=== PATIENT | male | born 1970 | race Hispanic/Latino ===

== ENCOUNTER 2021-06-18 07:14 | Emergency (ER) | payer SELFPAY ==
--- OUTSIDE RECORDS SUMMARY | 2021-06-18 07:18 | XMS REPORT | Continuity of Care Document ---
:1970 Author Organization [facility] t Address [address] [place] [address] Care Team Providers Name Role Phone Lab, Fam Pob I Attending Clinician Unavailable Ebrasheryl FERMENTATION MANAGER Attending Clinician EBRAHIM Attending Clinician Unavailable Doctor Unassigned, Name Attending Clinician Unavailable Problems This patient has no known problems. Allergies, Adverse Reactions, Alerts Allergy Allergy Status Severity Reaction(s) Onset Inactive Treating Comm ents Source Name Type Date Date Clinician NO KNOWN Drug [facility] Social History Social Habit Start Date Stop Date Quantity Comments Source Exposure to Yes [facility] SARS-CoV-2 (event) Medica l Branch Sex Assigned At [birth year] [facility] 00:00:00 00:00:00 [facility] Smoking Status Start Date Stop Date Source Unknown if ever smoked [facility] Medications This patient has no known medications. Procedures Procedure Date / Time Performed Performing Clinician Sour e ASSIGNMENT OF BENEFITS 2021-03-11 15:17:55 Doctor Unassigned, No [facility] Encounters Start End Encounter Admission Attending Care Care Encounter Source Date/Time Date/Time Type Type Clinicians Facility Department ID 2021-03-11 2021-03-11 Outpatient R [facility] [id number] Univers 11:40:00 11:40:00 [id number] [facility] 2021-03-11 2021-03-11 Laboratory Lab, Adc Fam Pob I [facility] 1.2. [id number] Univers 10:19:41 10:39:41 Only Dashawn Viralitikristina [facility] [id number] [facility] [id number] Ghanshyam as Professio [phone] Hi dical nal [address] 2021-03-11 2021-03-11 Outpatient R DASHAWN [facility] [id number] Univers 10:00:00 10:00:00 SAILAJA barriga of [facility] 2021-03-11 2021-03-11 Orders Doctor JORGE [id number] Univers 00:00:00 00:00:00 Only Unassigned, LAURO [id number] ity of [place] [facility] [id number] Ghanshyam as [phone] [facility] 009 Branch Results This patient has no known results.
[2021-06-18] MEDS ORDERED: KETOROLAC 30 MG/ML INJ ONE (07:40)
--- NOTE | 2021-06-18 08:01 | RAD REPORT ---
EXAM DESCRIPTION: CT - Thorax Wo Con - 06/18/2021 7:40 am CLINICAL HISTORY: PAIN COMPARISON: No comparisons FINDINGS: Chest Wall: No suspicious thyroid nodules or pathologic lymphadenopathy. Lungs: No acute abnormality. Pleura: No significant effusions or pneumothorax. Mediastinum/ofe: No pathologic lymphadenopathy. Pulmonary arteries/Aorta: Limited evaluation without contrast. No aortic aneurysm. Heart: No significant pericardial effusion. Normal heart size. Upper abdomen: There are couple of punctate renal calculi on the right kidney. Nonspecific "leanne" me sentery that is partially imaged, frequently an incidental finding. Bones: No acute abnormality. All CT scans are performed using dose optimization technique as appropriate and may include automated exposure control or mA/KV adjustment according to patient size. IMPRESSION: No acute findings within the chest. A few incidental findings as noted above.
--- NOTE | 2021-06-18 08:24 | EDPHYS ---
Physician Documentation [facility] Name: Isaias Diaz Age: 51 yrs Sex: Male : 1970 Arrival Date: 06/18/2021 Time: 07:15 Bed 17 Private MD: ED Physician Ronn Abebe HPI: 06/18 08:13 This 51 yrs old Male presents to ER via Ambulatory with complaints of Back kb Pain. 08:13 The patient presents with pain that is acute. The symptoms are located in the right kb subscapular area. Onset: The symptoms/episode began/occurred yesterday, and became worse today. The pain does not radiate. Associated signs and symptoms: The patient has no apparent associated signs or symptoms. The problem was sustained strenuous activity over the last several days. Modifying factors: The patient symptoms are alleviated by nothing, the patient symptoms are aggravated by movement. Severity of symptoms: At their worst the symptoms were moderate, in the emergency department the symptoms are unchanged. The patient has not experienced similar symptoms in the past. The patient has not recently seen a physician. Historical: - Allergies: 07:24 No Known Allergies; ss - Home Meds: 07:24 None [Active]; ss - PMHx: 07:24 borderline diabetes; ss - PSHx: 07:24 None; ss - Immunization history:: Client reports having NOT received the Covid vaccine. - Social history:: Smoking status: Patient reports the use of cigarette tobacco products, cigars. ROS: 08:12 Constitutional: Negative for fever, chills, and weight loss. kb 08:12 Back: Positive for pain at rest, pain with movement, of the right subscapular area. 08:12 All other systems are negative. Exam: 08:12 Constitutional: This is a well developed, well nourished patient who is awake, alert, kb and in no acute distress. Head/Face: Normocephalic, atraumatic. ENT: Moist Mucous membranes Cardiovascular: Regular rate and rhythm with a normal S1 and S2. No gallops, murmurs, or rubs. No pulse deficits. Respiratory: Respirations even and unlabored. No increased work of breathing, no retractions or nasal flaring. Skin: Warm, dry with normal turgor. Normal color. MS/ Extremity: Pulses equal, no cyanosis. Neurovascular intact. Full, normal range of motion. Neuro: Awake and alert, GCS 15, oriented to person, place, time, and situation. Moves all extremities. Normal gait. Psych: Awake, alert, with orientation to person, place and time. Behavior, mood, and affect are within normal limits. 08:12 Back: pain, that is moderate, of the right subscapular area, ROM is painful, vertebral tenderness, is not appreciated. Vital Signs: 07:23 BP 129 / 64; Pulse 77; Resp 22; Temp 97.0(TE); Pulse Ox 100% on R/A; Weight 131.54 kg; ss Height 5 ft. 10 in. (177.80 cm); Pain 9/10; 08:39 BP 128 / 87; Pulse 68; Resp 18; Temp 97.8; Pulse Ox 100% ; Pain 2/10; jh6 07:23 Body Mass Index 41.61 (131.54 kg, 177.80 cm) ss MDM: 07:16 Patient medically screened. kb 08:12 Data reviewed: vital signs, nurses notes. Data interpreted: Pulse oximetry: on room air kb is 100 %. Interpretation: normal. Counseling: I had a detailed discussion with the patient and/or guardian regarding: the historical points, exam findings, and any diagnostic results supporting the discharge/admit diagnosis, radiology results, the need for outpatient follow up, a family practitioner, to return to the emergency department if symptoms worsen or persist or if there are any questions or concerns that arise at home. 06/18 07:20 Order name: CT Chest Wo Con; Complete Time: 08:04 kb Administered Medications: 07:50 Drug: Ketorolac 60 mg Route: IM; Site: left gluteus; jh6 08:40 Follow up: Response: Pain is decreased jh6 Disposition: 17:55 Co-signature as Attending Physician, Ronn Abebe MD I agree with the assessment and kdr plan of care. Disposition Summary: 06/18/21 08:23 Discharge Ordered Location: Home kb Condition: Stable kb Diagnosis - Strain of muscle and tendon of back wall of thorax kb Followup: kb - With: Private Physician - When: 2 - 3 days - Reason: Recheck today's complaints, Continuance of care, Re-evaluation by your physician Followup: kb - With: Emergency Department - When: As needed - Reason: Worsening of condition Discharge Instructions: - Discharge Summary Sheet kb - Muscle Strain, Iooh-ec-Cywi kb Forms: - Medication Reconciliation Form kb - Thank You Letter kb - Antibiotic Education kb - Prescription Opioid Use kb Prescriptions: - Cyclobenzaprine 10 mg Oral Tablet - take 1 tablet by ORAL route every 8 hours As needed; 21 tablet; Refills: 0, kb Product Selection Permitted - Diclofenac Sodium 75 mg Oral tablet,delayed release (DR/EC) - take 1 tablet by ORAL route 2 times per day As needed; 30 tablet; Refills: 0, kb Product Selection Permitted Signatures: Dispatcher [employer] EDMS Judith Frazier, SCHOOL TRAFFIC SUPERVISOR-C Ronn Taylor MD MD kdr Smirch, Shelby, RN RN ss Sara Allred RN RN jh6
--- NOTE | 2021-06-18 08:24 | ER ---
Nurse's Notes [facility] Name: Isaias Diaz Age: 51 yrs Sex: Male : 1970 Arrival Date: 06/18/2021 Time: 07:15 Bed 17 Private MD: Diagnosis: Strain of muscle and tendon of back wall of thorax Presentation: 06/18 07:23 Chief complaint: Patient states: Back pain that began yesterday after chopping wood. ss Pain is worse today. Coronavirus screen: Client denies travel out of the [place] in the last 14 days. Ebola Screen: Patient denies exposure to infectious person. Patient denies travel to an Ebola-affected area in the 21 days before illness onset. Initial Sepsis Screen: Does the patient meet any 2 criteria? No. Patient's initial sepsis screen is negative. Does the patient have a suspected source of infection? No. Patient's initial sepsis screen is negative. Risk Assessment: Do you want to hurt yourself or someone else? Patient reports no desire to harm self or others. Onset of symptoms was June 17, 2021. 07:23 Method Of Arrival: Ambulatory ss 07:23 Acuity: RIANA 4 ss Triage Assessment: 07:38 General: Appears uncomfortable, Behavior is cooperative, restless. Pain: Complains of jh6 pain in right subscapular area Pain currently is 10 out of 10 on a pain scale. Quality of pain is described as sharp, shooting, stabbing, Pain began 1 day ago. Is continuous, Alleviated by Aggravated by increased activity, repositioning, Noted to be grimacing, guarding, restless, Also complains of no other associated symptoms. Musculoskeletal: Circulation, motion, and sensation intact. Historical: - Allergies: 07:24 No Known Allergies; ss - Home Meds: 07:24 None [Active]; ss - PMHx: 07:24 borderline diabetes; ss - PSHx: 07:24 None; ss - Immunization history:: Client reports having NOT received the Covid vaccine. - Social history:: Smoking status: Patient reports the use of cigarette tobacco products, cigars. Screenin:37 Abuse screen: Denies threats or abuse. Nutritional screening: No deficits noted. jh6 Tuberculosis screening: No symptoms or risk factors identified. Fall Risk None identified. Vital Signs: 07:23 BP 129 / 64; Pulse 77; Resp 22; Temp 97.0(TE); Pulse Ox 100% on R/A; Weight 131.54 kg; Height 5 ft. 10 in. (177.80 cm); Pain 9/10; 08:39 BP 128 / 87; Pulse 68; Resp 18; Temp 97.8; Pulse Ox 100% ; Pain 2/10; jh6 07:23 Body Mass Index 41.61 (131.54 kg, 177.80 cm) ED Course: 07:15 Patient arrived in ED. ds1 07:16 Judith Frazier FNP-C is [facility]. kb 07:16 Ronn Abebe MD is Attending Physician. kb 07:24 Triage completed. ss 07:24 Arm band placed on right wrist. 07:37 Sara Allred, RN is Primary Nurse. jh6 07:39 Bed in low position. Call light in reach. Side rails up X 1. Adult w/ patient. pt back jh6 from ct via wheelchair. pt able to transfer without assistance. 07:40 CT Chest Wo Con In Process Unspecified. EDMS 08:36 No provider procedures requiring assistance completed. jh6 08:39 Patient did not have IV access during this emergency room visit. jh6 Administered Medications: 07:50 Drug: Ketorolac 60 mg Route: IM; Site: left gluteus; jh6 08:40 Follow up: Response: Pain is decreased 6 Outcome: 08:23 Discharge ordered by . kb 08:36 Discharged to home ambulatory. jh6 08:36 Condition: improved 08:36 Discharge instructions given to patient, family, Instructed on discharge instructions, Demonstrated understanding of instructions, follow-up care, medications, Prescriptions given X 2. 08:41 Patient left the ED. jh6 Signatures: Dispatcher [employer] EDNM Judith Frazier FNP-C FNP-Ckb Sanford, Demi ds1 Lorraine Solano RN RN Sara Allred, RN RN 6
[2021-06-18 08:54] VITALS: O2SAT 100
[2021-06-18 08:57] VITALS: BP 128/87; TEMP 97.8
== END 2021-06-18 08:41 | disposition home or self-care (01) ==
LOC: ER 07:14
DX: S29.012A Strain of muscle and tendon of back wall of thorax, initial encounter (principal); F17.290 Nicotine dependence, other tobacco product, uncomplicated
CPT/HCPCS: 71250; 96372; 99283

== ENCOUNTER 2021-12-20 07:35 | Emergency (ER) | payer SELFPAY ==
--- OUTSIDE RECORDS SUMMARY | 2021-12-20 07:38 | XMS REPORT | Continuity of Care Document ---
:[address] [facility] t Address [address] [place] [address] Care Team Providers Name Role Phone Lab, Fam Pob I Attending Clinician Unavailable Ebrasheryl SUSTAINABLE AGRICULTURE FACULTY Attending Clinician EBRAHIM Attending Clinician Unavailable Doctor Unassigned, Name Attending Clinician Unavailable Problems This patient has no known problems. Allergies, Adverse Reactions, Alerts Allergy Allergy Status Severity Reaction(s) Onset Inactive Treating Comm ents Source Name Type Date Date Clinician NO KNOWN Drug [facility] Social History Social Habit Start Date Stop Date Quantity Comments Source Exposure to Yes [facility] SARS-CoV-2 (event) Medica l Branch Sex Assigned At [birth year] [facility] 00:00:00 00:00:00 [facility] Smoking Status Start Date Stop Date Source Unknown if ever smoked [facility] Medications This patient has no known medications. Procedures Procedure Date / Time Performed Performing Clinician Sour e ASSIGNMENT OF BENEFITS 2021-03-11 15:17:55 Doctor Unassigned, No [facility] Encounters Start End Encounter Admission Attending Care Care Encounter Source Date/Time Date/Time Type Type Clinicians Facility Department ID 2021-03-11 2021-03-11 Outpatient R [facility] [id number] Univers 11:40:00 11:40:00 [id number] [facility] 2021-03-11 2021-03-11 Laboratory Lab, Adc Fam Pob I [facility] 1.2. 840.114 [id number] Univers 10:19:41 10:39:41 Only Dashawn BCNXkristina [facility] [id number] [facility] [id number] Ghanshyam as Professio [phone] Ne dical nal [address] 2021-03-11 2021-03-11 Outpatient R DASHAWN [facility] [id number] Univers 10:00:00 10:00:00 SAILAJA barriga of [facility] 2021-03-11 2021-03-11 Orders Doctor JORGE [id number] Univers 00:00:00 00:00:00 Only Unassigned, LAURO [id number] ity of [place] [facility] [id number] Ghanshyam as [phone] [facility] 009 Branch Results This patient has no known results.
[2021-12-20] MEDS ORDERED: KETOROLAC 30 MG/ML INJ ONE (07:51)
[2021-12-20] MEDS ORDERED: ONDANSETRON 4 MG/2 ML VIAL ONE (07:51)
[2021-12-20] MEDS ORDERED: NA CHLORIDE 0.9% 1,000 ML ONE (07:51)
[2021-12-20 07:59] LABS: Hematocrit 43.4 % (39.6-49.0); Lymphocytes % 20.5 % (15.3-44.8); MPV 9.2 fL (7.6-11.3); RBC Red Blood Cell Count 4.89 M/uL (4.33-5.43)
[2021-12-20 08:13] LABS: Bilirubin Total 0.3 mg/dL (0.2-1.0); Potassium 4.5 mmol/L (3.5-5.1); Protein, Total 7.6 g/dL (6.4-8.2)
--- NOTE | 2021-12-20 08:26 | RAD REPORT ---
EXAM DESCRIPTION: CT - Abdomen Pelvis Wo Contrast - 12/20/2021 7:58 am CLINICAL HISTORY: Abdominal pain. Right flank pain COMPARISON: No comparisons TECHNIQUE: CT imaging of the abdomen and pelvis was performed without contrast. Solid organ, bowel a nd vascular assessment is limited due to lack of IV and oral contrast. All CT scans are performed using dose optimization technique as appropriate and may include automated exposure control or mA/KV adjustment according to patient size. FINDINGS: The lower lung kellogg are clear.Cholelithiasis. The liver, spleen, pancreas, adrenal glands are within normal limits for a limited non-contrast exami nation. Bilateral renal caliceal calculi are present, largest on the right measuring 3 mm. 3 mm stone is present right UVJ resulting in mild right hydronephrosis and hydroureter. No bowel obstruction, free air, free fluid or abscess. A large amount of edema seen in the small shon l mesenteric, nonspecific. The appendix is normal. Prominent degenerative changes present at L5-S1. IMPRESSION: 3 mm stone right UVJ resulting in mild right hydronephrosis. Bilateral nephrolithiasis. Cholelithiasis. Large amount of edema in the small bowel mesenteric, nonspecific, could represent significant mesente ritis. A limited non-contrast examination was performed as detailed.
--- NOTE | 2021-12-20 08:31 | ER ---
Nurse's Notes [facility] Name: Isaias Diaz Age: 51 yrs Sex: Male : 1970 Arrival Date: 12/20/2021 Time: 07:35 Bed 6 Private MD: Diagnosis: Right sided kidney stone;Hydronephrosis;Elevated Creatinine Presentation: 12/20 07:40 Chief complaint: Patient states: "I am having extreme right flank pain with nausea and jd3 vomiting.". Coronavirus screen: At this time, the client does not indicate any symptoms associated with coronavirus-19. Ebola Screen: No symptoms or risks identified at this time. Initial Sepsis Screen: Does the patient meet any 2 criteria? No. Patient's initial sepsis screen is negative. Does the patient have a suspected source of infection? No. Patient's initial sepsis screen is negative. Risk Assessment: Do you want to hurt yourself or someone else? Patient reports no desire to harm self or others. Onset of symptoms was December 20, 2021. 07:40 Acuity: RIANA 3 jd3 07:40 Method Of Arrival: Wheelchair jd3 Historical: - Allergies: 07:41 No Known Allergies; jd3 - Home Meds: 07:41 None [Active]; jd3 - PMHx: 07:41 Borderline Diabetes; Kidney stone; jd3 - PSHx: 07:41 None; jd3 - Immunization history:: Adult Immunizations up to date. - Social history:: Smoking status: Patient denies any tobacco usage or history of. Screenin:45 Abuse screen: Denies threats or abuse. Nutritional screening: No deficits noted. aa5 Tuberculosis screening: No symptoms or risk factors identified. Fall Risk None identified. Assessment: 07:45 General: Appears uncomfortable, Behavior is cooperative. Pain: Complains of pain in aa5 right flank Pain radiates to right lower quadrant Pain currently is 10 out of 10 on a pain scale. Quality of pain is described as sharp, shooting, Pain began this morning Is continuous. Neuro: Level of Consciousness is awake, alert, obeys commands, Oriented to person, place, time, situation. Cardiovascular: Heart tones S1 S2 present Patient's skin is warm and dry. Rhythm is regular. Respiratory: Airway is patent Respiratory effort is even, unlabored, Respiratory pattern is regular, symmetrical. GI: Abdomen is obese, Bowel sounds present X 4 quads. Abd is soft and non tender X 4 quads. Reports nausea, vomiting. : No signs and/or symptoms were reported regarding the genitourinary system. EENT: No signs and/or symptoms were reported regarding the EENT system. Derm: Skin is pink, warm \\T\\ dry. Musculoskeletal: Range of motion: intact in all extremities. 07:52 Reassessment: Pt to CT scan . aa5 08:09 Reassessment: Patient is alert, oriented x 3, equal unlabored respirations, skin aa5 warm/dry/pink. Patient states feeling better. Patient states symptoms have improved. General: Appears comfortable. Pain: Pain currently is 4 out of 10 on a pain scale. 09:10 Reassessment: Patient is alert, oriented x 3, equal unlabored respirations, skin aa5 warm/dry/pink. 09:10 General: Appears comfortable. aa5 Vital Signs: 07:41 BP 119 / 80; Pulse 63; Resp 18; Temp 97.3; Pulse Ox 100% ; Weight 136.08 kg (R); Height jd3 5 ft. 10 in. (177.80 cm) (R); Pain 10/10; 08:30 BP 143 / 73; Pulse 55; Resp 15; Pulse Ox 100% ; jl7 07:41 Body Mass Index 43.05 (136.08 kg, 177.80 cm) jd3 ED Course: 07:35 Patient arrived in ED. am2 07:37 Juan Diego Lizama DO is Attending Physician. ms3 07:41 Triage completed. jd3 07:42 Arm band placed on. jd3 07:44 Cassandra Soto, TIFFANIE is Primary Nurse. aa5 07:45 Patient has correct armband on for positive identification. Bed in low position. Call aa5 light in reach. Side rails up X 1. 07:45 Initial lab(s) drawn, by ED staff, sent to lab. Inserted saline lock: 20 gauge in left aa5 antecubital area, using aseptic technique. Blood collected. IV inserted by Abhishek Lira RN. 07:59 CT Abd/Pelvis - Without Contrast In Process Unspecified. EDMS 08:29 Luis Montoya MD is Referral Physician. ms3 09:05 No provider procedures requiring assistance completed. IV discontinued, intact, aa5 bleeding controlled, No redness/swelling at site. Pressure dressing applied. Administered Medications: 07:48 Drug: NS 0.9% 1000 ml Route: IV; Rate: 1 bolus; Site: left antecubital; aa5 09:07 Follow up: Response: No adverse reaction; IV Status: Completed infusion; IV Intake: jl7 1000ml 07:48 Drug: Zofran (Ondansetron) 4 mg Route: IVP; Site: left antecubital; aa5 07:53 Follow up: Response: No adverse reaction aa5 07:48 Drug: Ketorolac 15 mg Route: IVP; Site: left antecubital; aa5 07:53 Follow up: Response: No adverse reaction aa5 08:09 Follow up: Response: Marked relief of symptoms aa5 Intake: 09:07 IV: 1000ml; Total: 1000ml. jl7 Outcome: 08:30 Discharge ordered by . ms3 09:10 Discharged to home ambulatory, with family. aa5 09:10 Condition: improved 09:10 Discharge instructions given to patient, Instructed on discharge instructions, follow up and referral plans. medication usage, Demonstrated understanding of instructions, follow-up care, medications, Prescriptions given X 2. 09:13 Patient left the ED. aa5 Signatures: Dispatcher [employer] EDMS Cassandra Soto RN RN aa5 Abhishek Lira RN RN jl7 Adela Starkey Jonathon RN RN jd3 Juan Diego iLzama DO DO ms3 Corrections: (The following items were deleted from the chart) 07:57 07:45 Pain: Complains of pain in right flank Pain radiates to right lower quadrant Pain aa5 currently is 10 out of 10 on a pain scale. Quality of pain is described as sharp, shooting, Pain began Is continuous, aa5 09:07 08:40 IV Status: Completed infusion; IV Intake: 1000ml jl7 jl7
--- NOTE | 2021-12-20 08:31 | EDPHYS ---
Physician Documentation [facility] Name: Isaias Diaz Age: 51 yrs Sex: Male : 1970 Arrival Date: 12/20/2021 Time: 07:35 Bed 6 Private MD: ED Physician Juan Diego Lizama HPI: 12/20 07:43 This 51 yrs old Male presents to ER via Wheelchair with complaints of Flank ms3 Pain, Nausea/Vomiting. 07:43 The patient complains of pain in the Right flank. The pain radiates to the SP region. ms3 Onset: The symptoms/episode began/occurred 2 hour(s) ago. Modifying factors: The symptoms are alleviated by nothing. the symptoms are aggravated by nothing. Associated signs and symptoms: Pertinent positives: dizziness, nausea, vomiting, Pertinent negatives: dysuria, fever. Severity of pain: At its worst the pain was severe a 10 / 10 in the emergency department the pain is unchanged. Historical: - Allergies: 07:41 No Known Allergies; jd3 - Home Meds: 07:41 None [Active]; jd3 - PMHx: 07:41 Borderline Diabetes; Kidney stone; jd3 - PSHx: 07:41 None; jd3 - Immunization history:: Adult Immunizations up to date. - Social history:: Smoking status: Patient denies any tobacco usage or history of. ROS: 07:43 Constitutional: Negative for fever, and chills. ENT: Negative for injury, pain, and ms3 discharge, Neck: Negative for injury, pain, and swelling, Cardiovascular: Negative for chest pain, and palpitations. Respiratory: Negative for shortness of breath, cough, wheezing, and pleuritic chest pain. 07:43 Skin: Negative for injury, rash, and discoloration. 07:43 Abdomen/GI: Positive for nausea and vomiting. 07:43 Back: Positive for flank pain, on the right. Exam: 07:43 Constitutional: This is a well developed, well nourished patient who is awake, alert, ms3 and in no acute distress. Eyes: Pupils equal round and reactive to light, extra-ocular motions intact. Lids and lashes normal. Conjunctiva and sclera are non-icteric and not injected. Periorbital areas with no swelling, redness, or edema. Neck: Trachea midline, no cervical lymphadenopathy. Supple, full range of motion without nuchal rigidity, or vertebral point tenderness. No Meningismus. Chest/axilla: Normal chest wall appearance and motion. Nontender with no deformity. Cardiovascular: Regular rate and rhythm with a normal S1 and S2. No gallops, murmurs, or rubs. Normal PMI, no JVD. No pulse deficits. Respiratory: Lungs have equal breath sounds bilaterally, clear to auscultation and percussion. No rales, rhonchi or wheezes noted. No increased work of breathing, no retractions or nasal flaring. Abdomen/GI: Soft, non-tender, with normal bowel sounds. No distension or tympany. No guarding or rebound. No evidence of tenderness throughout. Back: No spinal tenderness. No costovertebral tenderness. Full range of motion. Skin: Warm, dry with normal turgor. Normal color with no rashes, no lesions, and no evidence of cellulitis. Psych: Awake, alert, with orientation to person, place and time. Behavior, mood, and affect are within normal limits. Vital Signs: 07:41 BP 119 / 80; Pulse 63; Resp 18; Temp 97.3; Pulse Ox 100% ; Weight 136.08 kg (R); Height jd3 5 ft. 10 in. (177.80 cm) (R); Pain 10/10; 08:30 BP 143 / 73; Pulse 55; Resp 15; Pulse Ox 100% ; jl7 07:41 Body Mass Index 43.05 (136.08 kg, 177.80 cm) jd3 MDM: 07:37 Patient medically screened. ms3 07:43 Differential diagnosis: nephrolithiasis, pyelonephritis, UTI. ms3 08:32 Data reviewed: vital signs, nurses notes, lab test result(s), radiologic studies, CT ms3 scan. Counseling: I had a detailed discussion with the patient and/or guardian regarding: the historical points, exam findings, and any diagnostic results supporting the discharge/admit diagnosis, lab results, radiology results, the need for outpatient follow up, to return to the emergency department if symptoms worsen or persist or if there are any questions or concerns that arise at home. ED course: Discussed labs, CT scan, physical exam findings with patient. Patient to follow-up with in 2 to 3 days. Patient understands and agrees with plan. All questions were answered. Return precautions discussed include worsening symptoms, or any other concerns. On reevaluation patient symptoms improved, patient is alert and oriented x4, no apparent distress, nontoxic, ambulatory in emergency department, tolerating p.o.. 12/20 07:43 Order name: CBC with Diff; Complete Time: 08:27 ms3 12/20 07:43 Order name: CMP; Complete Time: 08:27 ms3 12/20 07:43 Order name: Urine Microscopic Only ms3 12/20 07:43 Order name: CT Abd/Pelvis - Without Contrast; Complete Time: 08:27 ms3 12/20 09:08 Order name: Urine Dipstick-Ancillary EDMS 12/20 07:43 Order name: IV Saline Lock; Complete Time: 07:54 ms3 12/20 07:43 Order name: Labs collected and sent; Complete Time: 07:54 ms3 12/20 07:43 Order name: Urine Dipstick-Ancillary (obtain specimen); Complete Time: 09:07 ms3 Administered Medications: 07:48 Drug: NS 0.9% 1000 ml Route: IV; Rate: 1 bolus; Site: left antecubital; aa5 09:07 Follow up: Response: No adverse reaction; IV Status: Completed infusion; IV Intake: jl7 1000ml 07:48 Drug: Zofran (Ondansetron) 4 mg Route: IVP; Site: left antecubital; aa5 07:53 Follow up: Response: No adverse reaction aa5 07:48 Drug: Ketorolac 15 mg Route: IVP; Site: left antecubital; aa5 07:53 Follow up: Response: No adverse reaction aa5 08:09 Follow up: Response: Marked relief of symptoms aa5 Disposition Summary: 12/20/21 08:30 Discharge Ordered Location: Home ms3 Condition: Stable ms3 Diagnosis - Right sided kidney stone ms3 - Hydronephrosis ms3 - Elevated Creatinine ms3 Followup: ms3 - With: Luis Montoya MD - When: 2 - 3 days - Reason: Recheck today's complaints Discharge Instructions: - Discharge Summary Sheet ms3 - Kidney Stones ms3 Forms: - Medication Reconciliation Form ms3 - Work release form iw - Thank You Letter ms3 - Antibiotic Education ms3 - Prescription Opioid Use ms3 Prescriptions: - Tylenol-Codeine #3 300 mg-30 mg Oral - take 1 tablet by ORAL route every 4-6 hours for 3 days; 15 tablet; Refills: 0, ms3 Product Selection Permitted - tamsulosin 0.4 mg Oral capsule - take 1 capsule by ORAL route once daily for 10 days 1/2 hour following the same [facility] meal each day; 10 capsule; Refills: 0, Product Selection Permitted Signatures: Dispatcher [employer] Cassandra Hunt RN RN aa5 Dejuan Flores RN RN jd3 Juan Diego Lizama DO DO ms3 Abhishek Lira RN jl7
[2021-12-20 09:07] LABS: Urine Blood 3+ (Negative); Urine Glucose Negative (Negative); Urine Protein 1+ (Negative); Urine Specific Gravity >=1.030 (1.005-1.030); Urine pH 5.5 (5.0-7.0)
[2021-12-20 09:19] VITALS: TEMP 97.3; O2SAT 100
[2021-12-20 09:20] VITALS: BP 143/73
[2021-12-20 09:21] LABS: Urine Bacteria <20 /HPF (NONE SEEN); Urine Mucus SLIGHT /HPF (NONE SEEN); Urine RBC >50 /HPF (NONE SEEN)
== END 2021-12-20 09:13 | disposition home or self-care (01) ==
LOC: ER 07:35
DX: N13.2 Hydronephrosis with renal and ureteral calculous obstruction (principal); R79.89 Other specified abnormal findings of blood chemistry; R11.2 Nausea with vomiting, unspecified; R73.03 Prediabetes; Z87.442 Personal history of urinary calculi
CPT/HCPCS: 36415; 74176; 80053; 81003; 81015; 85025; 96361; 96374; 96375; 99284; J2405; J7030